=== PATIENT | male | born 2000 | race Two or more races ===

== ENCOUNTER 2022-09-11 00:33 | Emergency (ER) | payer OTHER ==
[~2022-09-11] VITALS: Ht 188 cm; Wt 99.8 kg
--- NOTE | 2022-09-11 00:52 | NUR ---
Dr. Corey at bedside. MSE in progress.
[2022-09-11] MEDS ORDERED: OXYCODONE/APAP 5-325 MG TABLET PO ONE (01:00)
[2022-09-11] MEDS ORDERED: OXYCODONE/APAP 5-325 MG TABLET ONE (01:05)
[2022-09-11 01:26] LABS: HEMATOCRIT 41.6 % (36.7-47.1); MEAN CORPUSCULAR HEMOGLOBIN 28.2 uug (23.8-33.4); MEAN CORPUSCULAR VOLUME 84.4 fL (73.0-96.2); PLATELET COUNT (AUTO) 315 K/uL (152-348)
[2022-09-11 01:51] LABS: *MONOTEST POSITIVE (NEGATIVE)
[2022-09-11] MEDS ORDERED: HYDR-3980 PO (02:19)
[2022-09-11] MEDS ORDERED: PENICILLIN G BENZATHINE 2.4 MMU/4 ML DISP.SYRIN IM ONE ×2 (02:30)
--- NOTE | 2022-09-11 02:45 | NUR ---
Patient discharged to home in stable condition. Pt. given printed Rx. Instructed pt not to drive. Written and verbal after care instructions given. Patient verbalizes understanding of instructions. Stressed follow up or return to ER for worsening s/s.
[2022-09-11 02:47] VITALS: BP 125/88
== END 2022-09-11 02:47 | disposition home or self-care (01) ==
LOC: ER 00:33
DX: B27.90 Infectious mononucleosis, unspecified without complication (principal); J02.0 Streptococcal pharyngitis; B95.0 Streptococcus, group A, as the cause of diseases classified elsewhere
CPT/HCPCS: 99283; 85025; 86308; 86403; 36415; 96372; J0561; A4663

== ENCOUNTER 2022-11-07 17:42 | Emergency (ER) | payer OTHER ==
[~2022-11-07] VITALS: Ht 188 cm; Wt 99.8 kg
[~2022-11-07 17:42] MED LIST: HYDR-3980 PO
--- NOTE | 2022-11-07 17:55 | NUR ---
Dr Poon at the bedside for MSE.
--- NOTE | 2022-11-07 18:00 | NUR ---
Swabs for COVID, STREP and Flu collected and sent to lab.
[2022-11-07] MEDS ORDERED: KETOROLAC TROMETHAMINE 15 MG INJ IM ONE (18:15)
[2022-11-07] MEDS ORDERED: KETOROLAC TROMETHAMINE 15 MG INJ ONE (18:19)
[2022-11-07] MEDS ORDERED: ONDANSETRON ODT 4 MG TAB.RAPDIS ONE (18:54)
[2022-11-07] MEDS ORDERED: HYDROCODONE/APAP 10-325 MG TABLET ONE (18:54)
[2022-11-07] MEDS ORDERED: HYDR-4209 PO (18:58)
[2022-11-07] MEDS ORDERED: METH4TAB21 PO (18:58)
[2022-11-07] MEDS ORDERED: HYDROCODONE/APAP 10-325 MG TABLET PO ONE (19:00)
[2022-11-07] MEDS ORDERED: ONDANSETRON ODT 4 MG TAB.RAPDIS SL ONE (19:00)
[2022-11-07 19:23] VITALS: BP 135/65
--- NOTE | 2022-11-07 19:23 | NUR ---
Patient discharged to home in stable condition. Written and verbal after care instructions given. Patient verbalizes understanding of instructions. Stressed follow up or return to ER for worsening s/s.
--- NOTE | 2022-11-07 19:26 | NUR ---
Patient given 10-325mg at 18:57 and Zofran 4mg at 18:57 by previous nurse. Reassessment marked as not done because patient was discharged at 19:20. Prior to discharge patient reported 2/10 pain and decreased nausea. Patient educated and instructed not to drive.
== END 2022-11-07 19:22 | disposition home or self-care (01) ==
LOC: ER 17:42
DX: J02.0 Streptococcal pharyngitis (principal); B95.5 Unspecified streptococcus as the cause of diseases classified elsewhere; B34.9 Viral infection, unspecified; Z20.822 Contact with and (suspected) exposure to COVID-19
CPT/HCPCS: 99285; 71045; 87426; 87804 ×2; 86403; 93005; 96372; J1885; A4663; Q0162

== ENCOUNTER 2022-12-12 21:38 | Emergency (ER) | payer OTHER ==
[~2022-12-12] VITALS: Ht 185.4 cm; Wt 99.8 kg
[~2022-12-12 21:38] MED LIST changes: +HYDR-4209 PO; +METH4TAB21 PO
[2022-12-12] MEDS ORDERED: HYDR-3980 PO (23:47)
--- NOTE | 2022-12-13 00:04 | NUR ---
Patient discharged to home in stable condition. Written and verbal after care instructions given. Patient verbalizes understanding of instructions. Stressed follow up or return to ER for worsening s/s. Patient walked out with steady with steady gait.
[2022-12-13 00:06] VITALS: BP 135/75
== END 2022-12-13 00:06 | disposition home or self-care (01) ==
LOC: ER 21:38
DX: S90.212A Contusion of left great toe with damage to nail, initial encounter (principal); W20.8XXA Other cause of strike by thrown, projected or falling object, initial encounter; Y92.89 Other specified places as the place of occurrence of the external cause
CPT/HCPCS: 11740; 73660; A4663